=== PATIENT | female | born 1970 | race Caucasian/White ===

== ENCOUNTER 2016-03-24 18:05 | Emergency (ER) | payer BC ==
[~2016-03-24] VITALS: Ht 157.5 cm; Wt 92.2 kg
[~2016-03-24 18:05] MED LIST: GABA300C5 PO; TYLETAB34 PO
[2016-03-24 18:08] VITALS: BP 123/81; PULSE 95; RESP 16; TEMP 98.2; O2SAT 95
[2016-03-24] MEDS ORDERED: METOCLOPRAMIDE HCL 10 MG/2 ML VIAL IV PUSH ONE (18:30)
[2016-03-24] MEDS ORDERED: LORazepam 2 MG/ML VIAL IV PUSH ONE (18:30)
[2016-03-24] MEDS ORDERED: SODIUM CHLOR 0.9% 1000 ML INJ 1,000 ML IV ONE (18:30)
[2016-03-24] MEDS ORDERED: SODIUM CHLORIDE 0.9% FLUSH 5 ML FLUSH IVF PRN (18:30)
[2016-03-24] MEDS ORDERED: MECL-62 PO (18:33)
[2016-03-24] MEDS ORDERED: ZOFR8TAB PO (18:33)
--- NOTE | 2016-03-24 18:37 | PD ---
HPI Chief Complaint: Dizziness Time Seen by Provider: 18:18 Travel History International Travel<30 days: No Contact w/Intl Traveler<30days: No Traveled to known affect area: No History of Present Illness HPI Patient is a well appearing 46-year-old female with history of restless leg syndrome, who presents to emergency room with complaints of dizziness. Reports that she was diagnosed with the flu on Friday by her primary care doctor. Patient reports that she was instructed go home and drink plenty of fluids and stay hydrated. Patient reports that she was told that if she was not feeling any better and 12 days, she was switched return to her doctor's office for reevaluation. Patient reports that on , she didn't feel dizzy, reports that she just didn't feel well. Patient reports that she went to the urgent care center who diagnosed her with vertigo and sent her home with prescription for meclizine and Zofran. Patient reports that she has been taking her medications with no relief of symptoms. Patient reports that she has been feeling lightheaded and dizzy, reports that she feels as if the whole world is spinning when she ambulates. Reports that she feels nauseous with her symptoms. Reports that she is not feeling any better so she decided to come to the Emergency room. Denies fever/chills. Denies cough/congestion. Denies chest pain/sob. Denies hx of vertigo in the past. Reports that she feels as if she has been hydrating and drinking enough fluids. PFSH Past Medical History Anemia: Yes Diminished Hearing: No Immune Disorder: Yes (RHEUMATOID ARTHRITIS) Kidney Stones: Yes Neurologic: Yes (RESTLESS LEG SYNDROME) Immunizations Current: Yes Migraines: Yes Pneumonia: Yes (WALKING) ?: Not LMP: MURENA : 3 Para: 2 Miscarriage: 1 Dilation and Curettage (D&C): Yes Tubal Ligation: Yes Past Surgical History Cholecystectomy: Yes (2004) Gynecologic Surgery: Yes (LEFT BREAST CYST REMOVED: 2007) Other Surgery: Yes (SINUS SURGERY) Family History Family Hypercholesterolemia: Yes (BOTH PARENTS) Social History Alcohol Use: No Tobacco Use: Yes (02/25 PPD) Substance Use: No Allergies-Medications (Allergen,Severity, Reaction): Coded Allergies: Penicillin (Verified Allergy, Severe, HIVES, 03/24/16) Reported Meds & Prescriptions Reported Meds & Active Scripts Active Reported Zofran (Ondansetron HCl) 8 Mg Tab 8 Mg PO TID Meclizine (Meclizine HCl) 25 Mg Tab 25 Mg PO TID PRN Tylenol-Codeine #3 (Acetaminophen-Codeine) 300-30 mg Tab 1 Tab PO Q4H PRN Gabapentin 300 Mg Cap 300 Mg PO BID Review of Systems General / Constitutional: No: Fever, Chills Eyes: No: Visual changes HENT: Positive: Vertigo, Lightheadedness, No: Headaches Cardiovascular: No: Chest Pain or Discomfort Respiratory: No: Shortness of Breath Gastrointestinal: Positive: Nausea, No: Vomiting, Diarrhea, Abdominal Pain Genitourinary: No: Urgency, Frequency, Dysuria Musculoskeletal: No: Pain Skin: No Rash Neurologic: No: Weakness Psychiatric: No: Depression Endocrine: No: Polydipsia Hematologic/Lymphatic: No: Easy Bruising Physical Exam Narrative GENERAL: No acute distress, nontoxic SKIN: Warm and dry. HEAD: Atraumatic. Normocephalic. EYES: Pupils equal and round. No scleral icterus. No injection or drainage. No nystagmus on exam ENT: No nasal bleeding or discharge. Mucous membranes pink and moist. NECK: Trachea midline. No JVD. CARDIOVASCULAR: Regular rate and rhythm. No murmur appreciated. RESPIRATORY: No accessory muscle use. Clear to auscultation. Breath sounds equal bilaterally. GASTROINTESTINAL: Abdomen soft, non-tender, nondistended. Hepatic and splenic margins not palpable. MUSCULOSKELETAL: No obvious deformities. No clubbing. No cyanosis. No edema. NEUROLOGICAL: Awake and alert. No obvious cranial nerve deficits. Motor grossly within normal limits. Normal speech. Cranial nerves to 12 grossly intact with no obvious deficits PSYCHIATRIC: Appropriate mood and affect; insight and judgment normal. Data Data Last Documented VS Vital Signs Date Time Temp Pulse Resp B/P Pulse Ox O2 Delivery O2 Flow Rate FiO2 03/24/16 18:08 98.2 95 16 123/81 95 Orders Prothrombin Time / Inr (Pt) (03/24/16 18:26) Act Partial Throm Time (Ptt) (03/24/16 18:26) Complete Blood Count With Diff (03/24/16 18:26) Comprehensive Metabolic Panel (03/24/16 18:26) Urinalysis - C+S If Indicated (03/24/16 18:26) Ct Brain W/O Iv Contrast(Rout) (03/24/16 18:26) Iv Access Insert/Monitor (03/24/16 18:26) Sodium Chloride 0.9% Flush (Ns Flush) (03/24/16 18:30) Metoclopramide Inj (Reglan Inj) (03/24/16 18:30) Lorazepam Inj (Ativan Inj) (03/24/16 18:30) Sodium Chlor 0.9% 1000 Ml Inj (Ns 1000 M (03/24/16 18:30) Orthostatic Vital Signs (03/24/16 18:28) MDM Medical Decision Making Medical Screen Exam Complete: Yes Emergency Medical Condition: Yes Interpretation(s) Vital Signs Date Time Temp Pulse Resp B/P Pulse Ox O2 Delivery O2 Flow Rate FiO2 03/24/16 18:08 98.2 95 16 123/81 95 Differential Diagnosis vertigo, cva, dehydration, electrolyte abnormality, complicated migraine Narrative Course Patient is a 46-year-old female who presents to emergency room with complaints of dizziness for the past 3 days. Patient reports that she was diagnosed with influenza on Friday by primary care doctor, reports that she has not been feeling well since then. Reports that she has been feeling increased dizziness and lightheadedness since . She did follow up at urgent care center and was told that she had vertigo was discharged home with Antivert and Zofran. Patient reports that she continues to feel nauseous and dizzy. Overall, patient is nontoxic on evaluation. Patient with benign physical examination as well as benign neurological examination. Discussed with patient need for CT of head for further evaluation symptoms. Patient most likely with benign positional vertigo. Patient reports that she did try taking Antivert today without any relief of symptoms, will give patient a dose of Ativan as well as Reglan for nausea. Patient signed out to Dr. Macias at change of shift. Maren Barnes DO Mar 24, 2016 18:37
--- NOTE | 2016-03-24 18:53 | RADHPO ---
EXAM DATE/TIME: 03/24/2016 18:33 [facility] COMPARISON: CT BRAIN W/O CONTRAST, December 01, 2014, 0:50. INDICATIONS : Dizziness for one week. RADIATION DOSE: 67.35 CTDIvol (mGy) MEDICAL HISTORY : None SURGICAL HISTORY : Tubal ligation. sinus surgery ENCOUNTER: Initial ACUITY: 1 day PAIN SCALE: 0/10 LOCATION: Bilateral head TECHNIQUE: Multiple contiguous axial images were obtained of the head. Using automated exposure control and adj ustment of the mA and/or kV according to patient size, radiation dose was kept as low as reasonably a chievable to obtain optimal diagnostic quality images. FINDINGS: CEREBRUM: The ventricles are normal for age. No evidence of midline shift, mass lesion, hemorrhage or acute in farction. No extra-axial fluid collections are seen. POSTERIOR FOSSA: The cerebellum and brainstem are intact. The 4th ventricle is midline. The cerebellopontine angle i s unremarkable. EXTRACRANIAL: The visualized portion of the orbits is intact. SKULL: The calvaria is intact. No evidence of skull fracture. CONCLUSION: Negative noncontrast CT brain. Jose Zimmerman MD on March 24, 2016 at 18:51 Board Certified Radiologist. This report was verified electronically.
[2016-03-24 19:11] LABS: AUTOMATED NEUTROPHIL # 9.5 TH/MM3 (1.8-7.7); BASOPHIL # 0.5 TH/MM3 (0-0.2); BASOPHIL % 3.4 % (0.0-2.0); EOSINOPHIL # 0.1 TH/MM3 (0-0.4); EOSINOPHIL % 0.4 % (0.0-4.0); HEMATOCRIT 41.8 % (35.0-46.0); LYMPH % 21.8 % (9.0-44.0); LYMPHOCYTE # 2.9 TH/MM3 (1.0-4.8); MEAN CELL VOLUME 90.4 FL (80.0-100.0); MEAN CORPUSCULAR HEMOGLOBIN 31.3 PG (27.0-34.0); MEAN CORPUSCULAR HGB CONC 34.7 % (32.0-36.0); MONO % 2.7 % (0.0-8.0); NEUT % 71.7 % (16.0-70.0); PLATELET COUNT 368 TH/MM3 (150-450); RED BLOOD COUNT 4.63 MIL/MM3 (4.00-5.30); RED CELL DISTRIBUTION WIDTH 12.5 % (11.6-17.2); WHITE BLOOD COUNT 13.4 TH/MM3 (4.0-11.0)
--- NOTE | 2016-03-24 19:12 | PD ---
Physical Exam Date Seen by Provider: Mar 24, 2016 Time Seen by Provider: 19:11 Narrative Accepted in transfer of care from Dr. Barnes GENERAL: Well-nourished female in acute distress no respiratory distress SKIN: Warm and dry. HEAD: Atraumatic. Normocephalic. EYES: Pupils equal and round. No scleral icterus. No injection or drainage. ENT: No nasal bleeding or discharge. Mucous membranes pink and moist. NECK: Trachea midline. No JVD. CARDIOVASCULAR: Regular rate and rhythm. RESPIRATORY: No accessory muscle use. Clear to auscultation. Breath sounds equal bilaterally. GASTROINTESTINAL: Abdomen soft, non-tender, nondistended. Hepatic and splenic margins not palpable. MUSCULOSKELETAL: Extremities without clubbing, cyanosis, or edema. No obvious deformities. NEUROLOGICAL: Awake and alert. No obvious cranial nerve deficits. Motor grossly within normal limits. Five out of 5 muscle strength in the arms and legs. No pronator drift. No limb ataxia. Sensory exam grossly intact. Normal speech. PSYCHIATRIC: Appropriate mood and affect; insight and judgment normal. Data Data Last Documented VS Vital Signs Date Time Temp Pulse Resp B/P Pulse Ox O2 Delivery O2 Flow Rate FiO2 03/24/16 19:20 88 134/75 92 137/84 100 140/83 03/24/16 19:18 16 97 Room Air 03/24/16 18:08 98.2 Orders Prothrombin Time / Inr (Pt) (03/24/16 18:26) Act Partial Throm Time (Ptt) (03/24/16 18:26) Complete Blood Count With Diff (03/24/16 18:26) Comprehensive Metabolic Panel (03/24/16 18:26) Urinalysis - C+S If Indicated (03/24/16 18:26) Ct Brain W/O Iv Contrast(Rout) (03/24/16 18:26) Iv Access Insert/Monitor (03/24/16 18:26) Sodium Chloride 0.9% Flush (Ns Flush) (03/24/16 18:30) Metoclopramide Inj (Reglan Inj) (03/24/16 18:30) Lorazepam Inj (Ativan Inj) (03/24/16 18:30) Sodium Chlor 0.9% 1000 Ml Inj (Ns 1000 M (03/24/16 18:30) Orthostatic Vital Signs (03/24/16 18:28) Ketorolac Inj (Toradol Inj) (03/24/16 19:15) Labs Laboratory Tests Test 03/24/16 03/24/16 18:55 19:05 Urine Collection Type CLEAN CATCH Urine Color STRAW Urine Turbidity SLIGHT Urine pH 6.5 Urine Specific [place] 1.015 Urine Protein NEG mg/dL Urine Glucose (UA) NEG mg/dL Urine Ketones NEG mg/dL Urine Occult Blood MOD Urine Nitrite NEG Urine Bilirubin NEG Urine Leukocyte Esterase SMALL Urine RBC 4-9 /hpf Urine WBC 0-2 /hpf Urine Squamous Epithelial 0-5 /hpf Cells Urine Amorphous Sediment FEW Urine Bacteria FEW /hpf Urine Mucus OCC /lpf Microscopic Urinalysis Comment CULT NOT INDICATED White Blood Count 13.4 TH/MM3 Red Blood Count 4.63 MIL/MM3 Hemoglobin 14.5 GM/DL Hematocrit 41.8 % Mean Corpuscular Volume 90.4 FL Mean Corpuscular Hemoglobin 31.3 PG Mean Corpuscular Hemoglobin 34.7 % Concent Red Cell Distribution Width 12.5 % Platelet Count 368 TH/MM3 Mean Platelet Volume 8.7 FL Neutrophils (%) (Auto) 71.7 % Lymphocytes (%) (Auto) 21.8 % Monocytes (%) (Auto) 2.7 % Eosinophils (%) (Auto) 0.4 % Basophils (%) (Auto) 3.4 % Neutrophils # (Auto) 9.5 TH/MM3 Lymphocytes # (Auto) 2.9 TH/MM3 Monocytes # (Auto) 0.4 TH/MM3 Eosinophils # (Auto) 0.1 TH/MM3 Basophils # (Auto) 0.5 TH/MM3 CBC Comment DIFF FINAL Differential Comment Prothrombin Time 10.2 SEC Prothromb Time International 0.9 RATIO Ratio Activated Partial 24.9 SEC Thromboplast Time Sodium Level 141 MEQ/L Potassium Level 4.1 MEQ/L Chloride Level 104 MEQ/L Carbon Dioxide Level 26.3 MEQ/L Anion Gap 11 MEQ/L Blood Urea Nitrogen 22 MG/DL Creatinine 0.71 MG/DL Estimat Glomerular Filtration 88 ML/MIN Rate Random Glucose 123 MG/DL Calcium Level 9.4 MG/DL Total Bilirubin 0.1 MG/DL Aspartate Amino Transf 8 U/L (AST/SGOT) Alanine Aminotransferase 24 U/L (ALT/SGPT) Alkaline Phosphatase 87 U/L Total Protein 7.3 GM/DL Albumin 3.5 GM/DL [facility] Medical Record Reviewed: Yes Supervised Visit with CHELSEY: No Interpretation(s) Last Impressions Head CT 03/24/16 1826 Signed Impressions: Service Date/Time: Thursday, March 24, 2016 18:33 - CONCLUSION: Negative noncontrast CT brain. Jose Zimmerman MD CBC & BMP Diagram 03/24/16 19:05 Differential Diagnosis Accepted in transfer of care from Dr. Barnes; please refer to her dictation Narrative Course Accepted in transfer of care from Dr. Barnes for pending labs and patient disposition CT and lab values discussed in detail with patient; patient stable for outpatient management; patient feels improved after IV fluid hydration. Patient encouraged to follow-up with her primary care provider. Diagnosis Primary Impression: Dizziness Additional Impression: H/O sinusitis Departure Forms: Tests/Procedures, Work Release Special Instructions: no work times one day. Additional Instruction: Continue current medication regimen Follow-up with primary care physician call office in a.m. No work times one day Return to the emergency department for any concerns or change in condition Use [id number] acetaminophen/Tylenol every 4 hours as needed for minor pain or for fever 100.4F or greater Use [id number] ibuprofen/Advil/Motrin every 6-8 hours as needed for pain associated inflammation or for fever 100.4F or greater Increase fluid hydration Med/Other Pt SpecificInfo: No Change to Meds Disposition: 01 DISCHARGE HOME Condition: Stable Jeanette Macias MD Mar 24, 2016 19:12
[2016-03-24] MEDS ORDERED: KETOROLAC TROMETHAMINE 30 MG/ML (IVP) VIAL IV PUSH ONE (19:15)
[2016-03-24 19:16] LABS: GLUCOSE,URINE NEG (NEG); KETONE, URINE NEG (NEG); NITRITE,URINE NEG (NEG); PH, URINE 6.5 (5.0-8.5)
[2016-03-24 19:17] LABS: HEMO FLAGS DIFF FINAL
[2016-03-24 19:18] VITALS: BP 119/76; PULSE 90; RESP 16; O2SAT 97
[2016-03-24 19:18] LABS: BLOOD, URINE MOD (NEG)
[2016-03-24 19:20] VITALS: BP_SYST 134; BP_SYST 137; BP_SYST 140; BP_DIAS 75; BP_DIAS 83; BP_DIAS 84
[2016-03-24 19:20] LABS: CHLORIDE 104 MEQ/L (98-107); POTASSIUM 4.1 MEQ/L (3.5-5.1); SODIUM (NA) 141 MEQ/L (136-145)
[2016-03-24 19:22] LABS: METHOD OF COLLECTION CLEAN CATCH; URINE COLOR STRAW (YELLW/STRAW)
[2016-03-24 19:23] LABS: MUCUS URINE OCC /lpf (OCC); SQUAMOUS EPITHELIAL CELL URINE 0-5 /hpf (0-5)
[2016-03-24 19:24] LABS: BACTERIA, URINE FEW /hpf
[2016-03-24 19:24] LABS: ANION GAP 11 MEQ/L (5-15); BICARBONATE 26.3 MEQ/L (21.0-32.0); BLOOD UREA NITROGEN 22 MG/DL (7-18)
[2016-03-24 19:25] LABS: COMMENT (UR) CULT NOT INDICATED; CULTURE IF INDICATED CULT NOT INDICATED; WBC, URINE 0-2 /hpf (0-5)
[2016-03-24 19:26] LABS: APTT (PATIENT) 24.9 SEC (24.3-30.1); INTERNATIONAL NORMALIZED RATIO 0.9 RATIO; PROTHROMBIN TIME - PATIENT 10.2 SEC (9.8-11.6)
[2016-03-24 19:27] LABS: ALT (GPT) 24 U/L (10-53); AST (GOT) 8 U/L (15-37); GLOMERULAR FILTRATION RATE 88 ML/MIN (>89)
[2016-03-24 19:29] LABS: TOTAL BILIRUBIN ADULT 0.1 MG/DL (0.2-1.0)
[2016-03-24 19:30] LABS: ALKALINE PHOSPHATASE 87 U/L (45-117)
== END 2016-03-24 20:42 | disposition home or self-care (01) ==
LOC: PHED 18:05
DX: R42 Dizziness and giddiness (principal); G25.81 Restless legs syndrome; M06.9 Rheumatoid arthritis, unspecified; F17.200 Nicotine dependence, unspecified, uncomplicated; R11.0 Nausea; Z79.899 Other long term (current) drug therapy
CPT/HCPCS: 70450; 80053; 81001; 85025; 85610; 85730; 96361; 96374; 96375; 99284; J1885; J2060; J2765; J7030

== ENCOUNTER 2016-05-29 21:52 | Emergency (ER) | payer BC ==
[~2016-05-29] VITALS: Ht 157.5 cm; Wt 92.5 kg
[~2016-05-29 21:52] MED LIST changes: +MECL-62 PO; +ZOFR8TAB PO
[2016-05-29 22:27] VITALS: BP 115/81; PULSE 86; RESP 20; TEMP 98.6; O2SAT 94
[2016-05-29] MEDS ORDERED: SODIUM CHLOR 0.9% 1000 ML INJ 1,000 ML IV SCH (22:52)
[2016-05-29 22:55] VITALS: BP 125/70; PULSE 81; RESP 16; RESP 18; O2SAT 96
--- NOTE | 2016-05-29 22:56 | PD ---
HPI Chief Complaint: Abdominal Pain Time Seen by Provider: 22:48 Travel History International Travel<30 days: No Contact w/Intl Traveler<30days: No Traveled to known affect area: No History of Present Illness HPI 46-year-old female here for evaluation of right flank pain and lower abdominal pain. Patient reports that her right flank pain started about 3 days ago and she describes it as sharp, intermittent, no modifying factors. She is also having some lower abdominal cramping that is worse with movement and palpation. Patient also reports feeling constipated. She had a small bowel movement today. No vomiting. No urinary or bowel incontinence. No trauma. No fevers. She had some chills earlier today. No hematuria or dysuria. PFSH Past Medical History Anemia: Yes Diminished Hearing: No Headaches: Yes Immune Disorder: Yes (RHEUMATOID ARTHRITIS) Kidney Stones: Yes Neurologic: Yes (RESTLESS LEG SYNDROME) Immunizations Current: Yes Migraines: Yes Pneumonia: Yes (WALKING) Tetanus Vaccination: < 5 Years Influenza Vaccination: Yes ?: Not LMP: MIRENA : 3 Para: 2 Miscarriage: 1 Dilation and Curettage (D&C): Yes Tubal Ligation: Yes Past Surgical History Cholecystectomy: Yes Gynecologic Surgery: Yes (LEFT BREAST CYST REMOVED: 2007) Other Surgery: Yes (SINUS SURGERY) Family History Family Hypercholesterolemia: Yes (BOTH PARENTS) Social History Alcohol Use: No Tobacco Use: Yes (1/2 ppd) Substance Use: No Allergies-Medications (Allergen,Severity, Reaction): Coded Allergies: Penicillin (Verified Allergy, Severe, HIVES, 05/29/16) Reported Meds & Prescriptions Reported Meds & Active Scripts Active Reported Divalproex DR (Divalproex Sodium) 125 Mg Tabdr 125 Mg PO TID Ropinirole 0.5 Mg Tab 0.5 Mg PO HS Zofran (Ondansetron HCl) 8 Mg Tab 8 Mg PO TID Tylenol-Codeine #3 (Acetaminophen-Codeine) 300-30 mg Tab 1 Tab PO Q4H PRN Review of Systems Except as stated in HPI: all other systems reviewed are Neg Physical Exam Narrative GENERAL: Well-developed, well-nourished, overweight, comfortable, no acute distress. SKIN: Focused skin assessment warm/dry. No rash. HEAD: Atraumatic. Normocephalic. EYES: Pupils equal and round. No scleral icterus. No injection or drainage. ENT: Mucous membranes pink and moist. NECK: Trachea midline. No JVD. CARDIOVASCULAR: Regular rate and rhythm. No murmur appreciated. RESPIRATORY: No accessory muscle use. Clear to auscultation. Breath sounds equal bilaterally. GASTROINTESTINAL: Abdomen soft, nondistended. Mild suprapubic and lower abdominal tenderness without peritoneal signs. Rest of abdomen is soft and nontender. Normal bowel sounds. MUSCULOSKELETAL: No obvious deformities. No clubbing. No cyanosis. No edema. Mild right CVA tenderness. No left CVA tenderness. No midline vertebral step- off or tenderness. NEUROLOGICAL: Awake and alert. No obvious cranial nerve deficits. Motor grossly within normal limits. Normal speech. PSYCHIATRIC: Appropriate mood and affect; insight and judgment normal. Data Data Last Documented VS Vital Signs Date Time Temp Pulse Resp B/P Pulse Ox O2 Delivery O2 Flow Rate FiO2 05/29/16 22:55 16 96 Room Air 05/29/16 22:43 05/29/16 22:27 98.6 86 Orders Complete Blood Count With Diff (05/29/16 22:52) Comprehensive Metabolic Panel (05/29/16 22:52) Lipase (05/29/16 22:52) Prothrombin Time / Inr (Pt) (05/29/16 22:52) Act Partial Throm Time (Ptt) (05/29/16 22:52) Urinalysis - C+S If Indicated (05/29/16 22:52) Ct Abd/Pel W Iv Contrast(Rout) (05/29/16 22:52) Iv Access Insert/Monitor (05/29/16 22:52) Ecg Monitoring (05/29/16 22:52) Oximetry (05/29/16 22:52) Morphine Inj (Morphine Inj) (05/29/16 23:00) Ondansetron Inj (Zofran Inj) (05/29/16 23:00) Sodium Chlor 0.9% 1000 Ml Inj (Ns 1000 M (05/29/16 22:52) Sodium Chloride 0.9% Flush (Ns Flush) (05/29/16 23:00) Iohexol 350 Inj (Omnipaque 350 Inj) (05/29/16 23:45) Labs Laboratory Tests Test 05/29/16 05/29/16 22:33 22:47 Urine Color YELLOW Urine Turbidity CLEAR Urine pH 7.0 Urine Specific [place] 1.016 Urine Protein NEG mg/dL Urine Glucose (UA) NEG mg/dL Urine Ketones NEG mg/dL Urine Occult Blood SMALL Urine Nitrite NEG Urine Bilirubin NEG Urine Leukocyte Esterase NEG Urine RBC 4-9 /hpf Urine WBC 0-2 /hpf Urine Squamous Epithelial 0-5 /hpf Cells Urine Bacteria NONE /hpf Microscopic Urinalysis Comment CULT NOT INDICATED White Blood Count 10.6 TH/MM3 Red Blood Count 4.32 MIL/MM3 Hemoglobin 13.4 GM/DL Hematocrit 39.4 % Mean Corpuscular Volume 91.3 FL Mean Corpuscular Hemoglobin 30.9 PG Mean Corpuscular Hemoglobin 33.9 % Concent Red Cell Distribution Width 12.4 % Platelet Count 295 TH/MM3 Mean Platelet Volume 9.2 FL Neutrophils (%) (Auto) 53.3 % Lymphocytes (%) (Auto) 36.5 % Monocytes (%) (Auto) 6.2 % Eosinophils (%) (Auto) 2.3 % Basophils (%) (Auto) 1.7 % Neutrophils # (Auto) 5.6 TH/MM3 Lymphocytes # (Auto) 3.9 TH/MM3 Monocytes # (Auto) 0.7 TH/MM3 Eosinophils # (Auto) 0.2 TH/MM3 Basophils # (Auto) 0.2 TH/MM3 CBC Comment DIFF FINAL Differential Comment Prothrombin Time 10.7 SEC Prothromb Time International 1.0 RATIO Ratio Activated Partial 26.9 SEC Thromboplast Time Sodium Level 142 MEQ/L Potassium Level 3.7 MEQ/L Chloride Level 107 MEQ/L Carbon Dioxide Level 26.3 MEQ/L Anion Gap 9 MEQ/L Blood Urea Nitrogen 17 MG/DL Creatinine 0.64 MG/DL Estimat Glomerular Filtration 99 ML/MIN Rate Random Glucose 112 MG/DL Calcium Level 9.5 MG/DL Total Bilirubin 0.1 MG/DL Aspartate Amino Transf 8 U/L (AST/SGOT) Alanine Aminotransferase 19 U/L (ALT/SGPT) Alkaline Phosphatase 81 U/L Total Protein 6.7 GM/DL Albumin 3.4 GM/DL Lipase 189 U/L [facility] Medical Decision Making Medical Screen Exam Complete: Yes Emergency Medical Condition: Yes Medical Record Reviewed: Yes Differential Diagnosis Pyelonephritis, nephrolithiasis, ureterolithiasis, UTI, colitis, diverticulitis , cystitis, Narrative Course Initial Vital signs show heart rate 86, blood pressure 115/81, pulse ox 94% on room air, oral temp of 98.6F. CBC is unremarkable. CMP is unremarkable. Lipase is 189. UA shows small occult blood, 4-9 RBCs, negative leukocyte esterase, negative nitrites, not suggestive of UTI. CT abdomen pelvis: CONCLUSION: 1. No acute abnormality. 2. Prior cholecystectomy. 3. IUD. Patient was made aware of all findings. She is resting comfortably. She is feeling a lot better after receiving morphine and Zofran. She is stable for discharge home with outpatient follow-up with her primary care physician this week. She was informed on when to return to the emergency department pitcher verbalizes understanding and agreement with plan. Diagnosis Primary Impression: Right flank pain Additional Impression: Hematuria Referrals: Primary Care Physician 3 days Additional Instructions: Follow-up with your primary care physician this week. Return to the emergency department for worsening symptoms or any other concerns. Scripts Naproxen (Naprosyn)500 Mg [id number] Mg PO BID 10 Days Ref 0 Prov:Ed Max MD 05/30/16 Disposition: 01 DISCHARGE HOME Condition: Stable Ed Max MD May 29, 2016 22:56
[2016-05-29] MEDS ORDERED: MORPHINE SULFATE 4 MG/ML INJ IV PUSH ONE (23:00)
[2016-05-29] MEDS ORDERED: ONDANSETRON HCL 4 MG/2 ML VIAL IVP ONE (23:00)
[2016-05-29] MEDS ORDERED: SODIUM CHLORIDE 0.9% FLUSH 10 ML FLUSH IV FLUSH PRN (23:00)
[2016-05-29] MEDS ORDERED: DIVA125T PO (23:12)
[2016-05-29] MEDS ORDERED: ROPI0.5T PO (23:12)
[2016-05-29 23:15] LABS: AUTOMATED NEUTROPHIL # 5.6 TH/MM3 (1.8-7.7); BASOPHIL # 0.2 TH/MM3 (0-0.2); BASOPHIL % 1.7 % (0.0-2.0); EOSINOPHIL # 0.2 TH/MM3 (0-0.4); EOSINOPHIL % 2.3 % (0.0-4.0); HEMATOCRIT 39.4 % (35.0-46.0); HEMO FLAGS DIFF FINAL; LYMPH % 36.5 % (9.0-44.0); LYMPHOCYTE # 3.9 TH/MM3 (1.0-4.8); MEAN CELL VOLUME 91.3 FL (80.0-100.0); MEAN CORPUSCULAR HEMOGLOBIN 30.9 PG (27.0-34.0); MEAN CORPUSCULAR HGB CONC 33.9 % (32.0-36.0); MONO % 6.2 % (0.0-8.0); NEUT % 53.3 % (16.0-70.0); PLATELET COUNT 295 TH/MM3 (150-450); RED BLOOD COUNT 4.32 MIL/MM3 (4.00-5.30); RED CELL DISTRIBUTION WIDTH 12.4 % (11.6-17.2); WHITE BLOOD COUNT 10.6 TH/MM3 (4.0-11.0)
[2016-05-29 23:16] LABS: BLOOD, URINE SMALL (NEG); GLUCOSE,URINE NEG (NEG); KETONE, URINE NEG (NEG); NITRITE,URINE NEG (NEG)
[2016-05-29 23:23] LABS: CHLORIDE 107 MEQ/L (98-107); POTASSIUM 3.7 MEQ/L (3.5-5.1); SODIUM (NA) 142 MEQ/L (136-145)
[2016-05-29 23:24] LABS: URINE COLOR YELLOW (YELLW/STRAW)
[2016-05-29 23:25] LABS: COMMENT (UR) CULT NOT INDICATED; CULTURE IF INDICATED CULT NOT INDICATED; SQUAMOUS EPITHELIAL CELL URINE 0-5 /hpf (0-5); WBC, URINE 0-2 /hpf (0-5)
[2016-05-29 23:27] LABS: ANION GAP 9 MEQ/L (5-15); BICARBONATE 26.3 MEQ/L (21.0-32.0); BLOOD UREA NITROGEN 17 MG/DL (7-18)
[2016-05-29 23:29] LABS: APTT (PATIENT) 26.9 SEC (24.3-30.1); PROTHROMBIN TIME - PATIENT 10.7 SEC (9.8-11.6)
[2016-05-29 23:30] LABS: ALT (GPT) 19 U/L (10-53); AST (GOT) 8 U/L (15-37); GLOMERULAR FILTRATION RATE 99 ML/MIN (>89)
[2016-05-29 23:31] LABS: TOTAL BILIRUBIN ADULT 0.1 MG/DL (0.2-1.0)
[2016-05-29 23:33] LABS: ALKALINE PHOSPHATASE 81 U/L (45-117)
[2016-05-29] MEDS ORDERED: IOHEXOL 350 MG/ML 10 ML VIAL (for RAD DIAG) IV ONE (23:45)
[2016-05-29 23:55] VITALS: BP 136/69; PULSE 79; RESP 16; O2SAT 95
--- NOTE | 2016-05-30 00:08 | RADHPO ---
EXAM DATE/TIME: 05/29/2016 23:38 [facility] COMPARISON: No previous studies available for comparison. INDICATIONS : Right flank pain with constipation. IV CONTRAST: 100 cc Omnipaque 350 (iohexol) IV ORAL CONTRAST: No oral contrast ingested. RADIATION DOSE: 20.67 CTDIvol (mGy) MEDICAL HISTORY : Renal calculi. Rheumatoid arthritis. SURGICAL HISTORY : Cholecystectomy. Tubal ligation. ENCOUNTER: Initial ACUITY: 3 days PAIN SCALE: 9/10 LOCATION: Right flank abdomen TECHNIQUE: Volumetric scanning of the abdomen and pelvis was performed. Using automated exposure control and ad justment of the mA and/or kV according to patient size, radiation dose was kept as low as reasonably achievable to obtain optimal diagnostic quality images. FINDINGS: LOWER LUNGS: The visualized lower lungs are clear. LIVER: Homogeneous density without lesion. There is no dilation of the biliary tree. Prior cholecystectomy. SPLEEN: Normal size without lesion. PANCREAS: Within normal limits. KIDNEYS: Normal in size and shape. There is no mass, stone or hydronephrosis. ADRENAL GLANDS: Within normal limits. VASCULAR: There is no aortic aneurysm. BOWEL/MESENTERY: The stomach, small bowel, and colon demonstrate no acute abnormality. There is no free intraperitone al air or fluid. ABDOMINAL WALL: Within normal limits. RETROPERITONEUM: There is no lymphadenopathy. BLADDER: No wall thickening or mass. REPRODUCTIVE: Within normal limits. IUD. INGUINAL: There is no lymphadenopathy or hernia. MUSCULOSKELETAL: Within normal limits for patient age. CONCLUSION: 1. No acute abnormality. 2. Prior cholecystectomy. 3. IUD. Jose Dubose Jr., MD on May 30, 2016 at 0:04 Board Certified Radiologist. This report was verified electronically.
[2016-05-30] MEDS ORDERED: NAPR500 PO (00:15)
== END 2016-05-30 00:47 | disposition home or self-care (01) ==
LOC: PHED 21:52
DX: R10.31 Right lower quadrant pain (principal); R10.30 Lower abdominal pain, unspecified; R31.9 Hematuria, unspecified; K59.00 Constipation, unspecified; D64.9 Anemia, unspecified; F17.210 Nicotine dependence, cigarettes, uncomplicated; M06.9 Rheumatoid arthritis, unspecified
CPT/HCPCS: 74177; 80053; 81001; 83690; 85025; 85610; 85730; 96361; 96374; 96375; 99284; J2270; J2405; J7030; Q9967

== ENCOUNTER 2017-01-04 15:53 | Emergency (ER) | payer BC ==
[~2017-01-04] VITALS: Ht 157.5 cm; Wt 87.9 kg
[~2017-01-04 15:53] MED LIST changes: +DIVA125T PO; -GABA300C5 PO; -MECL-62 PO; +NAPR500 PO; +ROPI0.5T PO
[2017-01-04 15:59] VITALS: BP 125/65; PULSE 95; RESP 16; TEMP 98; O2SAT 96
[2017-01-04] MEDS ORDERED: NARA2.5T PO (16:30)
--- NOTE | 2017-01-04 18:20 | PD ---
HPI Chief Complaint: Musculoskeletal Complaint Time Seen by Provider: 16:33 Travel History International Travel<30 days: No Contact w/Intl Traveler<30days: No Traveled to known affect area: No History of Present Illness HPI 46-year-old occasional female presents emergency Department with 2 day history of worsening left medial ankle swelling, pain, and pain into the left foot. Patient denies any specific injury but [place] the [place] which may have caused some of the issue. Patient states the pain is worse with ambulation and weightbearing. She has no numbness, tingling, or other symptoms. Pain is currently 8 out of 10 with weightbearing. It is better with nonweightbearing. She is allergic to penicillin. PFSH Past Medical History Anemia: Yes Diminished Hearing: No Headaches: Yes Immune Disorder: Yes (RHEUMATOID ARTHRITIS) Kidney Stones: Yes Neurologic: Yes (RESTLESS LEG SYNDROME) Immunizations Current: Yes Migraines: Yes Pneumonia: Yes (WALKING) Tetanus Vaccination: Unknown ?: Not LMP: no menses has IUD : 3 Para: 2 Miscarriage: 1 Dilation and Curettage (D&C): Yes Tubal Ligation: Yes Past Surgical History Cholecystectomy: Yes Gynecologic Surgery: Yes (LEFT BREAST CYST REMOVED: 2007) Other Surgery: Yes (SINUS SURGERY) Family History Family Hypercholesterolemia: Yes (BOTH PARENTS) Social History Alcohol Use: No Tobacco Use: Yes (1/2 ppd) Substance Use: No Allergies-Medications (Allergen,Severity, Reaction): Coded Allergies: penicillin G (Unverified Allergy, Severe, HIVES, 01/04/17) Reported Meds & Prescriptions Reported Meds & Active Scripts Active Ibuprofen 800 Mg Tab 800 Mg PO Q8H PRN Reported Naratriptan (Naratriptan HCl) 2.5 Mg Tab 2.5 Mg PO ONCE PRN May be repeated once after 4 hours, for a maximum of 5 mg in a 24-hour period. Ropinirole 0.5 Mg Tab 0.5 Mg PO HS Review of Systems Except as stated in HPI: all other systems reviewed are Neg General / Constitutional: No: Fever Eyes: No: Visual changes HENT: No: Headaches Cardiovascular: No: Chest Pain or Discomfort Respiratory: No: Shortness of Breath Gastrointestinal: No: Abdominal Pain Genitourinary: No: Dysuria Musculoskeletal: Positive: Arthralgias, Limited ROM, Pain Skin: No Rash Neurologic: No: Weakness Psychiatric: No: Depression Endocrine: No: Polydipsia Hematologic/Lymphatic: No: Easy Bruising Physical Exam Narrative GENERAL: Patient appears in no acute distress. SKIN: Warm and dry. Normal color. Normal turgor. HEAD: Atraumatic. Normocephalic. EYES: Pupils equal and round. No scleral icterus. No injection or drainage. ENT: No nasal bleeding or discharge. Mucous membranes pink and moist. NECK: Trachea midline. No JVD. CARDIOVASCULAR: Regular rate and rhythm. RESPIRATORY: No accessory muscle use. Clear to auscultation. Breath sounds equal bilaterally. GASTROINTESTINAL: Abdomen soft, non-tender, nondistended. Hepatic and splenic margins not palpable. MUSCULOSKELETAL: Extremities without clubbing, cyanosis, or edema. No obvious deformities. Patient has mild swelling over the left medial foot/left medial malleolus. Patient has tenderness with palpation of this area more in the foot and the ankle. She has increased pain with dorsiflexion and plantar flexion of the foot. NEUROLOGICAL: Awake and alert. No obvious cranial nerve deficits. Motor grossly within normal limits. Five out of 5 muscle strength in the arms and legs. Normal speech. PSYCHIATRIC: Appropriate mood and affect; insight and judgment normal. Data Data Last Documented VS Vital Signs Date Time Temp Pulse Resp B/P (MAP) Pulse Ox O2 Delivery O2 Flow Rate FiO2 01/04/17 15:59 98.0 95 16 125/65 (85) 96 Orders Orders Foot, Limited (2vws) (01/04/17 16:33) [facility] Medical Decision Making Medical Screen Exam Complete: Yes Emergency Medical Condition: Yes Differential Diagnosis Left foot pain. Left ankle pain. Left ankle sprain. Plantar fasciitis. Narrative Course X-rays obtained of the left foot. X-ray shows no acute fracture or dislocation. Patient is felt to have plantar fasciitis. Patient is given ibuprofen 800 mg 3 times daily with food #30. Patient is to ice and stretch the area as discussed. Patient is to wear supportive shoes with good arch. Patient follow with podiatry if symptoms do not improve or worsen. Diagnosis Primary Impression: Plantar fasciitis of left foot Referrals: Yoni Regalado DPM as needed Patient Instructions: General Instructions, Plantar Fasciitis (ED), Plantar Fasciitis Exercises (ED) Additional Instructions: X-ray shows no acute fracture or dislocation. Patient is felt to have plantar fasciitis. Patient is given ibuprofen 800 mg 3 times daily with food #30. Patient is to ice and stretch the area as discussed. Patient is to wear supportive shoes with good arch. Patient follow with podiatry if symptoms do not improve or worsen. Scripts Ibuprofen (Ibuprofen) 800 Mg Tab 800 MG PO Q8H Y for Pain/Inflammation, #30 TAB 0 Refills Prov: Charisma Epsosito MD 01/04/17 Disposition: 01 DISCHARGE HOME Condition: Stable Nando Candelaria Jan 04, 2017 18:20
--- NOTE | 2017-01-04 18:31 | RADRPT ---
EXAM DATE/TIME: 01/04/2017 18:19 [facility] COMPARISON: No previous studies available for comparison. INDICATIONS : Woke up with left foot swelling and pain, no known injury MEDICAL HISTORY : None. SURGICAL HISTORY : None. ENCOUNTER: Initial ACUITY: 2 days PAIN SCORE: 7/10 LOCATION: Left foot FINDINGS: Two view examination of the left foot demonstrates no soft tissue swelling, dislocation, or fracture. The calcaneus is intact. Bony mineralization is normal. Small calcaneal spur at the plantar aponeu rosis. CONCLUSION: 1. Small calcaneal spur at the plantar aponeurosis. 2. Otherwise negative. No fracture. Davide Garcia MD on January 04, 2017 at 18:28 Board Certified Radiologist. This report was verified electronically.
[2017-01-04] MEDS ORDERED: IBUP1TAB7 PO (18:35)
== END 2017-01-04 18:44 | disposition home or self-care (01) ==
LOC: PHEFT 15:53
DX: M72.2 Plantar fascial fibromatosis (principal); F17.200 Nicotine dependence, unspecified, uncomplicated; Z86.2 Personal history of diseases of the blood and blood-forming organs and certain disorders involving the immune mechanism; Z87.39 Personal history of other diseases of the musculoskeletal system and connective tissue; Z87.442 Personal history of urinary calculi; Z86.69 Personal history of other diseases of the nervous system and sense organs
CPT/HCPCS: 73620; 99283